=== PATIENT | male | born 1970 | race Caucasian/White ===

== ENCOUNTER 2025-04-11 07:48 | Day surgery (SDC) | payer OTHER, SELFPAY ==
[2025-04-01 13:28] VITALS: BMI 27.7
--- NOTE | 2025-04-11 | PATH_ITS ---
[facility] Accession Number: [id number] No. of containers..04 Tissue . 01 Material submitted: . PART A: duodenum - DUODENAL PART B: stomach - ANTRAL PART C: esophagus - ESOPHAGEAL PART D: gastrointestinal site - GASTRIC POLYP . 01 Diagnosis: A. DUODENUM, BIOPSY: Duodenal mucosa with no diagnostic abnormality. Negative for active inflammation, features of sprue, dysplasia, or malignancy. . B. GASTRIC ANTRUM, BIOPSY: Gastric antral mucosa with mild chronic inflammation. Negative for Helicobacter organisms by immunohistochemistry. Negative for intestinal metaplasia. Negative for dysplasia or malignancy. . C. ESOPHAGUS, BIOPSY: Squamocolumnar junctional mucosa with ulcer and intestinal metaplasia; please see comment. Negative for fungal organisms on PAS stain. Negative for cytomegalovirus or herpes simplex virus inclusions by immunohistochemistry. Negative for dysplasia or malignancy. . D. GASTRIC POLYP: Gastric oxyntic mucosa with mildly dilated pits, consistent with early fundic gland polyp. No evidence of Helicobacter organisms on H/E stain. Negative for intestinal metaplasia. Negative for dysplasia and malignancy. [facility] 04/17/2025 1727 Local . 01 Comment: C. The findings in the esophageal biopsy would be consistent with Morales's esophagus in the appropriate endoscopic setting. . 01 Electronically signed: . Gume Smallwood MD, PhD, Pathologist NPI- [id number] . 01 Gross description: . A. Received in formalin with two identifiers and duodenal is a single currie soft tissue fragment, 0.3 cm in greatest dimension, submitted entirely in A1. B. Received in formalin with two identifiers and antral is a single currie soft tissue fragment, 0.4 cm in greatest dimension, submitted entirely in B1. C. Received in formalin with two identifiers and esophageal is a single currie friable soft tissue fragment, 0.5 cm in greatest dimension, submitted entirely in C1. D. Received in formalin with two identifiers and gastric polyp is a single currie soft tissue fragment, 0.3 cm in greatest dimension, submitted entirely in D1. ([id number]) /MRV 04/12/2025 1715 Local . 01 Microscopic: . B. An immunohistochemical stain was performed to evaluate for Helicobacter organisms and is negative. The control stain showed appropriate reactivity. . C. A PAS stain is negative for fungal organisms. Immunohistochemical stains are negative for cytomegalovirus and herpes simplex virus inclusions, respectively. All control stains show appropriate reactivity. . * This test was developed and the performance characteristics were validated by [facility]. It has not been cleared or approved by the [place]. Food and Drug Administration. . 01 Pathologist provided ICD-10: K22.10, K29.70, K31.7 . 01 CPT . 011613, 897129, 971887, 358567, [id number], [id number], [id number] Specimen Comment: A courtesy copy of this report has been sent to [facility] Performed at: [address] [address], [place], [place] [id number] MD Medardo Castellanos MD Phone: [phone]
--- NOTE | 2025-04-11 06:26 | PM.PREOP ---
Pre-operative Note Interval Note History & Physical reviewed/Exam performed by Physician: Yes Changes to H&P: No ASA Class (for procedural sedation): II
[2025-04-11 08:06] VITALS: BP 136/91; PULSE 77; RESP 16; TEMP 36.2; O2SAT 96
--- NOTE | 2025-04-11 09:04 | PM.OP.EGD ---
Operative Date/Time/Diagnoses Date of procedure: 04/11/25 Time of procedure: 09:35 Pre-op diagnosis: GERD Post-op diagnosis: other (Hiatal hernia, esophagitis, gastritis, duodenitis) Procedure & Clinicians Study performed: EGD with biopsy Same procedure(s) as scheduled: Yes Indications: 55yo M with chronic GERD, cough, throat clearing. Surgeon: Chang Marshall Anesthesia Type: MAC +/- Procedure Notes SCOAP/Timeout: Performed Procedure in detail: EGD Informed consent was obtained. The procedure, its risks, benefits, and alternatives were discussed. Patient understood and agreed to proceed. The patient was placed in the left lateral decubitus position with head elevated. Sedation given per anesthesia. The video endoscope was inserted into the oropharynx and guided under direct vision into the esophagus, stomach, and duodenum which were carefully examined. The scope was retroflexed to examine the hiatus and gastroesophageal junction. Antral biopsies were obtained for Helicobacter pylori. The patient tolerated the procedure very well. There were no apparent complications. Significant EGD findings: Z-line noted at: 36cm LA Grade B esophagitis, biopsied 3cm hiatal hernia Gastric polyp along greater curve, biopsied Moderate antral gastritis, small clots evidence for recent bleeding, biopsied; H pylori possible Moderate duodenitis, biopsied No ulcer in esophagus, stomach or duodenum Findings: gastritis, hiatal hernia and other findings (esophagitis) Specimen(s): other (biopsies) Estimated Blood Loss: 5 Complications: none Impression: LA Grade B esophagitis 3cm hiatal hernia Moderate gastritis Moderate duodenitis Post-procedure Recommendations: Will call with biopsy results Plan for aftercare: PACU then home PPI BID Omeprazole Follow up: as needed Disposition: PACU
[2025-04-11 09:32] VITALS: BP 132/74; PULSE 74; RESP 16; TEMP 36.2; O2SAT 98
[2025-04-11 09:37] VITALS: BP 112/74; PULSE 86; RESP 16; TEMP 36.2; O2SAT 98
[2025-04-11 09:56] VITALS: BP 118/78; PULSE 58; RESP 16; TEMP 36.2; O2SAT 98
[2025-04-11 10:02] VITALS: BP 125/78; PULSE 58; RESP 16; TEMP 36.2; O2SAT 98
== END 2025-04-11 10:19 | disposition home or self-care (01) ==
PROVIDERS: PCP Nurse Practitioner Family; Referring Provider Surgery; Visit Provider Surgery
PROC: 0DJ08ZZ Inspection of Upper Intestinal Tract, Via Natural or Artificial Opening Endoscopic (ICD-10-PCS; CPT 43239; principal; 2025-04-11 08:45)
DX: K21.00 Gastro-esophageal reflux disease with esophagitis, without bleeding (principal); F84.0 Autistic disorder; F43.10 Post-traumatic stress disorder, unspecified; F90.9 Attention-deficit hyperactivity disorder, unspecified type; R53.82 Chronic fatigue, unspecified; R06.00 Dyspnea, unspecified; R00.2 Palpitations; K44.9 Diaphragmatic hernia without obstruction or gangrene; R05.9 Cough, unspecified; K29.80 Duodenitis without bleeding; K29.50 Unspecified chronic gastritis without bleeding; K22.10 Ulcer of esophagus without bleeding; K31.7 Polyp of stomach and duodenum
CPT/HCPCS: 43239; J2250; J2704